=== PATIENT | male | born 1975 | race Caucasian/White ===

== ENCOUNTER 2016-11-11 13:27 | Observation (INO) | payer SELFPAY ==
[2016-11-11 13:45] VITALS: TEMP 97.8
--- NOTE | 2016-11-11 14:17 | C.PDOC ---
History Of Present Illness 41 y/o male brought to ED by EMS for public intoxication. Patient denies any pain on arrival. Otherwise, no other medical complaints at this time. Time Seen by Provider: 11/11/16 14:09 Chief Complaint (Nursing): Substance Abuse History Per: Patient History/Exam Limitations: no limitations Current Symptoms Are (Timing): Still Present Suicide/Self Injury Attempted (Context): None Modifying Factor(s): Alcohol Associated Symptoms: denies: Suicidal Thoughts, Suicidal Plan Recent travel outside of the [place]: No Past Medical History Reviewed: Historical Data, Nursing Documentation, Vital Signs Vital Signs: Last Vital Signs Temp 97.8 F 11/11/16 13:41 Pulse 81 11/11/16 18:33 Resp 14 11/11/16 18:33 BP 105/67 11/11/16 18:33 Pulse Ox 99 11/11/16 18:33 Family History: States: Unknown Family Hx - Social History Hx Alcohol Use: Yes Hx Substance Use: No Review Of Systems Except As Marked, All Systems Reviewed And Found Negative. Constitutional: Negative for: Fever, Chills Cardiovascular: Negative for: Chest Pain Respiratory: Negative for: Cough Gastrointestinal: Negative for: Vomiting, Abdominal Pain Skin: Positive for: Other (healing upper lip laceration ). Negative for: Rash Neurological: Negative for: Headache, Dizziness Physical Exam - Physical Exam Appears: Non-toxic, Other (intoxicated, crying) Skin: Normal Color, Warm, Dry Head: Normacephalic, Laceration (laceration upper lip with sutures in place) Eye(s): bilateral: Other (conjunctival redness) Nose: Normal Oral Mucosa: Moist Neck: Supple Chest: Symmetrical Cardiovascular: Rhythm Regular Respiratory: Normal Breath Sounds, No Rales, No Rhonchi, No Wheezing Gastrointestinal/Abdominal: Soft, No Tenderness, No Guarding, No Rebound Back: Normal Inspection Extremity: Normal ROM, Capillary Refill (< 2 sec. ) Extremity: Bilateral: Atraumatic Neurological/Psych: Oriented x3, Normal Speech, Normal Cognition ED Course And Treatment - Laboratory Results Lab Interpretation: Abnormal Interpretation Of Abnormal: ETOH 379 O2 Sat by Pulse Oximetry: 97 (RA) Pulse Ox Interpretation: Normal ED OBSERVATION Date of observation admission: 11/11/16 Time of observation admission: 14:15 - Observation admission statement Patient is being placed in observation because:: alcohol intoxiction - Goals of Observation Goals of observation are:: sobriety - Progress Note Progress Note: 11/11/16 16:44 Patient sleeping quietly, arousable to verbal stimuli. Disposition - Disposition Disposition: ELOPEMENT - ER ONLY Disposition Time: 21:20 Condition: IMPROVED - Clinical Impression Clinical Impression: Alcohol intoxication - Scribe Statement The provider has reviewed the documentation as recorded by the Rohitibcindy Charlton Provider Scribe Attestation: All medical record entries made by the Brianna were at my direction and personally dictated by me. I have reviewed the chart and agree that the record accurately reflects my personal performance of the history, physical exam, medical decision making, and the department course for this patient. I have also personally directed, reviewed, and agree with the discharge instructions and disposition.
[2016-11-11 18:34] VITALS: BP 105/67; PULSE 81; RESP 14
[2016-11-11 21:22] VITALS: O2SAT 97
== END 2016-11-11 19:27 | disposition home or self-care (01) ==
LOC: C.ER 13:27 → C.9OBSV 14:15
PROVIDERS: ADMIT Emergency Medicine; ATTEND Emergency Medicine
DX: F10.129 Alcohol abuse with intoxication, unspecified (principal); S01.511A Laceration without foreign body of lip, initial encounter; Y90.8 Blood alcohol level of 240 mg/100 ml or more
CPT/HCPCS: 99283; G0378; G0480